=== PATIENT | male | born 1985 | race Asian ===

== ENCOUNTER 2023-06-29 18:48 | Emergency (ER) | payer OTHER ==
[~2023-06-29] VITALS: Ht 167.6 cm; Wt 74.8 kg
[2023-06-29 19:54] VITALS: BP_SYST 148; PULSE 101; RESP 18; TEMP 99.4; O2SAT 98
== END 2023-06-29 23:35 | disposition left against medical advice (07) ==
LOC: SED 18:48
DX: H92.01 Otalgia, right ear (principal); R51.9 Headache, unspecified; Z53.21 Procedure and treatment not carried out due to patient leaving prior to being seen by health care provider
CPT/HCPCS: 99281